=== PATIENT | male | born 1950 | race Caucasian/White ===

== ENCOUNTER 2017-09-01 12:20 | Emergency (ER) | payer OTHER, SELFPAY ==
[2017-09-01 12:26] VITALS: BP 159/74; PULSE 88; RESP 18; O2SAT 98
--- NOTE | 2017-09-01 13:26 | ED_ITS ---
HPI - Extremity Problem <Amy Quinn PA-C - Last Filed: 09/01/17 21:13> General Chief complaint: Extremity Problem,Nontraumatic Stated complaint: FEELS NO STRENGTH IN LEGS WHEN WALKING Time Seen by Provider: 09/01/17 13:23 Source: patient Mode of arrival: ambulatory Limitations: no limitations History of Present Illness HPI Narrative: This 66-year-old male states that he came in today because ?my girlfriend was concerned?. He states that he has had intermittent tingling in both of his legs for more than a year, sometimes comes on while he is walking his dog, sometimes when he has been walking and then he stops. He states that both legs will feel weak and kind of tingling. He states that the symptoms resolve with a few minutes of rest. He states that he has low back pain off and on, but there is not necessarily a correlation with the issues of weakness or numbness. He denies any acute change in his symptoms and states he is ?fine ? today. He denies any new symptoms such as fever, new urinary dysfunction or bowel habit change. He denies any new trauma. He states that a year or more ago he did have an MRI in [place] and found that his 5th and 6th vertebrae were grinding on each other, no specific treatment was needed. He states he has a remote history of nerve pain and a clot in his left leg with a DVT due to trauma at age 18 where he was unable to walk normally for more than a year, but that fully resolved. He does not have any history of ongoing neuropathy. Related Data Home Medications Medication Instructions Recorded Confirmed aspirin 81 mg PO QDAY #0 07/11/16 warfarin [Coumadin] #0 07/11/16 Previous Rx's Medication Instructions Recorded levetiracetam [Keppra] 500 mg PO BID 30 Days #0 tab 07/11/16 sildenafil [Viagra] 100 mg PO QDAYP PRN #10 tab 11/18/16 atorvastatin [Lipitor] 40 mg PO QDAY #90 tab 06/01/17 lisinopril 20 mg PO QDAY #90 tab 06/01/17 metoprolol succinate 50 mg PO QDAY #90 tab 06/01/17 warfarin [Coumadin] 5 mg PO QDAY #100 tab 08/14/17 Allergies Allergy/AdvReac Type Severity Reaction Status Date / Time oxycodone [OXYCODONE] Allergy Unknown ITCHING Unverified 06/24/17 12:43 Review of Systems <DEJUAN Man Last Filed: 09/01/17 21:13> Review of Systems All systems reviewed & are unremarkable except as noted in HPI and below Exam <DEJUAN Man Last Filed: 09/01/17 21:13> Narrative Exam Narrative: GENERAL APPEARANCE: Patient sitting comfortably, in no distress. LUNGS: Clear to auscultation bilaterally. HEART: Rate and rhythm irregular without murmur MS: No tenderness over the lumbosacral spine or SI joints. Full range of motion of the trunk without tenderness. Lower extremity strength 5/5 bilateral hip flexors, knee extensors, foot plantar flexion. Normal gait NEUROLOGIC: Lower extremity sensation is grossly intact, bilateral patellar and Achilles DTRs 2+ with distraction EXTREMITIES: No edema, no calf tenderness Initial Vital Signs Initial Vital Signs: Vital Signs Pulse Rate 88 09/01/17 12:26 Respiratory Rate 18 09/01/17 12:26 Blood Pressure 159/74 H 09/01/17 12:26 Pulse Oximetry 98 09/01/17 12:26 <Shaun Uribe DO - Last Filed: 09/07/17 08:58> Initial Vital Signs Initial Vital Signs: Vital Signs Pulse Rate 88 09/01/17 12:26 Respiratory Rate 18 09/01/17 12:26 Blood Pressure 159/74 H 09/01/17 12:26 Pulse Oximetry 98 09/01/17 12:26 Course <Amy Quinn PA-C - Last Filed: 09/01/17 21:13> Vital Signs - 8 hr 09/01/17 14:01 Pulse Rate 83 Respiratory Rate 20 Blood Pressure 171/83 H Pulse Oximetry 98 <DO Mackenzie Enrique Last Filed: 09/07/17 08:58> Vital Signs - 8 hr 09/01/17 14:01 Pulse Rate 83 Respiratory Rate 20 Blood Pressure 171/83 H Pulse Oximetry 98 Discharge Plan Departure Patient Disposition: Home, Self-Care Clinical Impression: Bilateral leg paresthesia Discharge Date/Time: 09/01/17 14:01 Interventions: ED Discharge Assessment Last Done: 09/01/17 14:01 Instructions: DI for Numbness/tingling Activity Restrictions/Additional Instructions: You should call your PCP today and schedule a follow-up on this visit. There does not appear to be any emergent issue today, however from what you have described to me on your previous MRI, your symptoms could be caused by a spine problem, such as narrowing in the spine that is creating pressure on nerves traveling to your legs. There are also other possible causes such as vascular issues, and you need further testing. It may be helpful if you can get your previous MRI films on disc so that the local radiologist will be able to compare if your PCP orders another. You should of course return in the interim if you have any acutely worsening symptoms Prescriptions: No Action aspirin 81 MG tablet,chewable 81 mg PO QDAY Qty: 0 RF: 0 warfarin [Coumadin] 5 mg Tablet Qty: 0 RF: 0 levetiracetam [Keppra] 500 MG tablet 500 mg PO BID 30 Days Qty: 0 RF: 0 sildenafil [Viagra] 100 MG tablet 100 mg PO QDAYP PRNQty: 10 RF: 0 atorvastatin [Lipitor] 40 MG tablet 40 mg PO QDAY Qty: 90 RF: 3 metoprolol succinate 50 MG tablet extended release 24 hr 50 mg PO QDAY Qty: 90 RF: 3 lisinopril 20 MG tablet 20 mg PO QDAY Qty: 90 RF: 3 warfarin [Coumadin] 5 mg tablet 5 mg PO QDAY Qty: 100 RF: 0 Referrals: Krista Ortiz DO [Primary Care Provider] - <Shaun Uribe DO - Last Filed: 09/07/17 08:58> Cosign ED Attending Rasheedature Attestation: I was immediately available in the department for consultation. Documentation has been reviewed. I agree with assessment and plan.
[2017-09-01 14:01] VITALS: BP 171/83; PULSE 83; RESP 20; O2SAT 98
== END 2017-09-01 14:01 | disposition home or self-care (01) ==
PROVIDERS: Emergency Provider Internal Medicine; Family Provider Family Medicine; PCP Family Medicine
DX: R20.0 Anesthesia of skin (principal)
CPT/HCPCS: 99282